=== PATIENT | male | born 1990 | race Caucasian/White ===

== ENCOUNTER 2020-09-26 12:18 | Emergency (ER) | payer OTHER ==
[~2020-09-26] VITALS: Ht 180.3 cm; Wt 73.5 kg
[2020-09-26 12:21] VITALS: BP_SYST 138
[2020-09-26 12:51] VITALS: BP_SYST 124
== END 2020-09-26 13:30 | disposition home or self-care (01) ==
LOC: SED 12:18
DX: M54.12 Radiculopathy, cervical region (principal)
CPT/HCPCS: 70450-TC; 76376; 99284

== ENCOUNTER 2021-07-13 19:48 | Emergency (ER) | payer OTHER ==
[~2021-07-13] VITALS: Ht 180.3 cm; Wt 56.2 kg
[2021-07-13 19:59] VITALS: BP_SYST 125
--- NOTE | 2021-07-13 20:03 | NUR ---
Patient triaged and placed in waiting room. VSS and patient appears in no acute distress at this time. Accompanied by family, awaiting available bed, and MD notified of need for MSE.
--- NOTE | 2021-07-13 20:08 | NUR ---
Patient ambulatory to bed 1 for evaluation and treatment
[2021-07-13] MEDS ORDERED: BACITRACIN ZINC 15 GM TOPICAL OINTMENT TP ONE (20:15)
[2021-07-13] MEDS ORDERED: LIDOCAINE/EPI 1% 1:100000 20 ML VIAL INJ ONE (20:15)
--- NOTE | 2021-07-13 20:25 | NUR ---
Patient is A/Ox4, lying in bed resting comfortably, no s/s of distress. Patients skin is intact, patient self turns. Patient stated pain is 4/10. Patient chest rise and fall symmetrical. Bed in low and locked position, bed rails up. Addendum: 07/13/21 at 2102 by [email or web address] Patient is A/Ox4, lying in bed resting comfortably, no s/s of distress. Patient self turns. Patient stated pain is 4/10. Patient chest rise and fall symmetrical. Bed in low and locked position, bed rails up.
--- NOTE | 2021-07-13 21:01 | NUR ---
Hany Diaz cleaned patient's wound. Patient tolerated wound cleaning. Dr. Brady in room assessing patient.
--- NOTE | 2021-07-13 21:01 | NUR ---
Patient stated he "was cutting zip ties with his knfe and accidentally cut his finger." Patient is A/Ox4, lying in bed resting comfortably, no s/s of distress. Patient self turns. Patient stated pain is 4/10. Patient chest rise and fall symmetrical. Bed in low and locked position, bed rails up.
[2021-07-13] MEDS ORDERED: ACETAMINOPHEN 500 MG TABLET PO ONE (21:15)
[2021-07-13] MEDS ORDERED: DIPH-TET-PERTUS Vaccine 0.5 ML VIAL (ADACEL) I.M. ONE (21:15)
[2021-07-13] MEDS ORDERED: BACITRACIN 1 GM OINT TP ONE (21:25)
[2021-07-13] MEDS ORDERED: BACI15OI13 TP (21:51)
--- NOTE | 2021-07-13 21:54 | NUR ---
Dressed wound: Applied Basitrasin, 2' x2', curlex, & tubular gauze.
--- NOTE | 2021-07-13 22:09 | NUR ---
[employer] applied Basitrasin, and wrapped wound with 2' x2', curlex, & tubular gauze. Patient tolerated proceedurewell, no c/o pain or s/s of discomfort. Patient states he "can feel finger tip."
[2021-07-13 22:13] VITALS: BP_SYST 120
--- NOTE | 2021-07-13 22:15 | NUR ---
Patient given written and verbal discharge instructions and verbalizes understanding. ER MD Dr. Brady discussed with patient the results and treatment provided. Patient in stable condition. ID arm band removed. Sutures applied by Dr. Brady, dressing applied by Hany Pedersen, no active bleeding. Patient left with all paperwork.
== END 2021-07-13 22:15 | disposition home or self-care (01) ==
LOC: SED 19:48
DX: S61.211A Laceration without foreign body of left index finger without damage to nail, initial encounter (principal); Z79.899 Other long term (current) drug therapy; W45.8XXA Other foreign body or object entering through skin, initial encounter; Y93.89 Activity, other specified; Y92.89 Other specified places as the place of occurrence of the external cause; Y99.8 Other external cause status
CPT/HCPCS: 90715; 99283